=== PATIENT | female | born 1985 | race Caucasian/White ===

== ENCOUNTER 2023-01-09 23:39 | Emergency (ER) | payer OTHER ==
[~2023-01-09] VITALS: Ht 160 cm; Wt 68.0 kg
[2023-01-09] MEDS ORDERED: LEVOTHYROXINE50 MCG PO (23:46)
== END 2023-01-10 01:34 | disposition left against medical advice (07) ==
LOC: ED 23:39
DX: T50.904A Poisoning by unspecified drugs, medicaments and biological substances, undetermined, initial encounter (principal); E03.9 Hypothyroidism, unspecified; Y92.89 Other specified places as the place of occurrence of the external cause